=== PATIENT | female | born 1980 | race Caucasian/White ===

== ENCOUNTER 2016-07-17 11:26 | Emergency (ER) | payer SELFPAY ==
[2016-07-17 11:38] VITALS: BP 145/76
--- NOTE | 2016-07-17 11:53 | RAD ---
Indication injury, pain. AP oblique and lateral views of the right ankle were obtained. No bony abnormality is seen
[2016-07-17] MEDS ORDERED: TRAM-29 PO (12:15)
--- NOTE | 2016-07-17 12:15 | PHYS DOC ---
Past Medical History Past Medical History: Other Additional Past Medical Histor: PREECLAMPSIA Past Surgical History: , Other Additional Past Surgical Histo: CANCEROUS CELLS REMOVED Additional Information: 03/20 ppd Alcohol Use: Occasionally Drug Use: None Adult General Chief Complaint Chief Complaint: ANKLE PROBLEM HPI HPI Patient is a 35 year old female with history of appendicitis who presents today with moderate right ankle pain that began 5 days ago. Patient states she was walking down some steps when she rolled her ankle. Review of Systems Review of Systems Constitutional: Denies fever or chills [] Eyes: Denies change in visual acuity, redness, or eye pain [] HENT: Denies nasal congestion or sore throat [] Musculoskeletal: Right ankle pain Integument: Denies rash or skin lesions [] Neurologic: Denies headache, focal weakness or sensory changes [] Endocrine: Denies polyuria or polydipsia [] Allergies Allergies Allergies Coded Allergies Type Severity Reaction Last Updated Verified No Known Drug Allergies 12/30/15 No Physical Exam Physical Exam Constitutional: Well developed, well nourished, no acute distress, non-toxic appearance. [] HENT: Normocephalic, atraumatic, bilateral external ears normal, oropharynx moist, no oral exudates, nose normal. [] Eyes: PERRLA, EOMI, conjunctiva normal, no discharge. [] Neck: Normal range of motion, no tenderness, supple, no stridor. [] Cardiovascular:Heart rate regular rhythm, no murmur [] Lungs & Thorax: Bilateral breath sounds clear to auscultation [] Abdomen: Bowel sounds normal, soft, no tenderness, no masses, no pulsatile masses. [] Skin: Warm, dry, no erythema, no rash. [] Back: No tenderness, no CVA tenderness. [] Extremities: Right lateral ankle with mild soft tissue swelling. Tenderness on palpation of the right lateral ankle. Full range of motion to the right ankle. Patient able to flex and extend the right foot with no difficulty. +2 right radial pulse. Cap refill less than 2 seconds the right lower extremity. Sensation intact to the right ankle. Neurologic: Alert and oriented X 3, normal motor function, normal sensory function, no focal deficits noted. [] Psychologic: Affect normal, judgement normal, mood normal. [] Current Patient Data Vital Signs Vital Signs Date Time Temp Pulse Resp B/P Pulse Ox O2 Delivery O2 Flow Rate FiO2 5/1/17 11:38 98.2 71 18 98 Room Air 98.2 EKG EKG [] Radiology/Procedures Radiology/Procedures [] Course & Med Decision Making Course & Med Decision Making Pertinent Labs and Imaging studies reviewed. (See chart for details) Patient is in the ED right ankle pain after rolling it 5 days ago. Right ankle x -rays interpreted by radiologist are negative for any acute findings. Clay wrap applied to the right ankle by the appliance service technician. Neurovascular exam done by me is normal, cap refill less than 2 seconds. Ice elevation encouraged. Follow-up with orthopedic doctor in one week. Dragon Disclaimer Dragon Disclaimer This electronic medical record was generated, in whole or in part, using a voice recognition dictation system. Departure Departure Impression: Primary Impression: Right ankle sprain Disposition: HOME, SELF-CARE Condition: STABLE Referrals: NO PCP (PCP) ANG ZAMAN MD Follow-up with him in one week Patient Instructions: Ankle Sprain Additional Instructions: You were seen for right ankle sprain. Wear the air cast as tolerated, it will help with the swelling. Ice and elevate the extremity. Take the prescribed medicines as needed for pain. Follow-up with the provided orthopedic doctor in a week if pain continues. Scripts Tramadol Hcl (Ultram)50 Mg Tablet1 Tab PO Q6HRS #30 TAB Prov:CLIVE WOODRUFF APRN 07/17/16 Problem Qualifiers Primary Impression: Right ankle sprain Encounter type: initial encounter Involved ligament of ankle: unspecified ligament Qualified Code: S93.401A - Sprain of unspecified ligament of right ankle, initial encounter CLIVE WOODRUFF APRN July 17, 2016 12:15
== END 2016-07-17 12:34 | disposition home or self-care (01) ==
LOC: ER 11:26
DX: S93.401A Sprain of unspecified ligament of right ankle, initial encounter (principal); F17.200 Nicotine dependence, unspecified, uncomplicated; X50.9XXA Other and unspecified overexertion or strenuous movements or postures, initial encounter; Y93.89 Activity, other specified; Y99.8 Other external cause status; Y92.89 Other specified places as the place of occurrence of the external cause
CPT/HCPCS: 73610; 99284

== ENCOUNTER 2018-08-18 21:10 | Emergency (ER) | payer OTHER, SELFPAY ==
[~2018-08-18] VITALS: Ht 157.5 cm; Wt 79.4 kg
[~2018-08-18 21:10] MED LIST: TRAM-48 PO
[2018-08-18 21:31] VITALS: BP 154/70
--- NOTE | 2018-08-18 22:11 | PHYS DOC ---
Past Medical History Past Medical History: Other Additional Past Medical Histor: PREECLAMPSIA (LEODAN DORAN APRN) Past Surgical History: , Other Additional Past Surgical Histo: CANCEROUS CELLS REMOVED (LEODAN DORAN APRN) Alcohol Use: Occasionally Drug Use: None (LEODAN DORAN APRN) Adult General Chief Complaint Chief Complaint: FOOT INJURY PAIN [facility] HPI Patient is a 38 year old female who presents with L foot pain that has been ongoing since February. The patient states that is has been worse today. She states she was at the pool with her child and then was at work on her feet which has caused it to feel worse. The patient states that she rates her pain as 7/10 and sharp. Has tried insoles which is not working. (LEODAN DORAN APRN) Review of Systems Review of Systems Constitutional: Denies fever or chills [] Eyes: Denies change in visual acuity, redness, or eye pain [] HENT: Denies nasal congestion or sore throat [] Respiratory: Denies cough or shortness of breath [] Cardiovascular: No additional information not addressed in HPI [] GI: Denies abdominal pain, nausea, vomiting, bloody stools or diarrhea [] : Denies dysuria or hematuria [] Musculoskeletal: Denies back pain or joint pain with exception of L foot pain. Integument: Denies rash or skin lesions [] Neurologic: Denies headache, focal weakness or sensory changes [] Endocrine: Denies polyuria or polydipsia [] Complete systems were reviewed and found to be within normal limits, except as documented in this note. (LEODAN DORAN APRN) Current Medications Current Medications Current Medications Medications (Trade) Dose Ordered Sig/Juliana Start Time Stop Time Status Last Admin Dose Admin Ketorolac Tromethamine (Toradol 30mg Vial) 30 mg 1X ONCE 08/18/18 22:15 08/18/18 22:16 DC 08/18/18 23:25 30 MG (BRYANNA DIAMOND MD) Allergies Allergies Allergies Coded Allergies Type Severity Reaction Last Updated Verified No Known Drug Allergies 12/30/15 No (BRYANNA DIAMOND MD) Physical Exam Physical Exam Constitutional: Well developed, well nourished, no acute distress, non-toxic appearance. [] HENT: Normocephalic, atraumatic, bilateral external ears normal, oropharynx moist, no oral exudates, nose normal. [] Eyes: PERRLA, EOMI, conjunctiva normal, no discharge. [] Neck: Normal range of motion, no tenderness, supple, no stridor. [] Cardiovascular:Heart rate regular rhythm, no murmur [] Lungs & Thorax: Bilateral breath sounds clear to auscultation [] Abdomen: Bowel sounds normal, soft, no tenderness, no masses, no pulsatile masses. [] Skin: Warm, dry, no erythema, no rash. [] Back: No tenderness, no CVA tenderness. [] Extremities: No tenderness with exception of L foot, no cyanosis, no clubbing, ROM intact, no edema. [] Neurologic: Alert and oriented X 3, normal motor function, normal sensory function, no focal deficits noted. [] Psychologic: Affect normal, judgement normal, mood normal. [] (LEODAN DORAN APRN) Current Patient Data Vital Signs Vital Signs Date Time Temp Pulse Resp B/P (MAP) Pulse Ox O2 Delivery O2 Flow Rate FiO2 08/18/18 21:31 98.0 84 18 154/70 (98) 95 Room Air 98.0 (BRYANNA DIAMOND MD) EKG EKG [] (LEODAN DORAN APRN) Radiology/Procedures Radiology/Procedures Preliminary X-ray by Dr. Diamond No acute fracture but has heel spurs.[] (LEODAN DORAN APRN) Course & Med Decision Making Course & Med Decision Making Pertinent Labs and Imaging studies reviewed. (See chart for details) Will get x-ray of foot and refer to ortho. Patient is agreeable. (LEODAN DORAN APRN) Course & Med Decision Making Staff Physician Addendum: I was working in the ER during the course of this patient's visit. I was available for consultation as needed, but I was not directly involved in the care of this patient. (BRYANNA DIAMOND MD) Dragon Disclaimer Dragon Disclaimer This electronic medical record was generated, in whole or in part, using a voice recognition dictation system. (LEODAN DORAN APRN) Departure Departure Impression: Primary Impression: Foot pain, left Disposition: 01 HOME, SELF-CARE Condition: STABLE Referrals: UNKNOWN PCP NAME (PCP) SUZAN ESPARZA II, MD Patient Instructions: Heel Spur, Plantar Fasciitis (Heel Spur Syndrome) with [facility] Additional Instructions: Please follow up with ortho and your primary care doctor. Come back to ER as needed. LEODAN DORAN APRN Aug 18, 2018 22:10 BRYANNA DIAMOND MD Aug 20, 2018 05:00
[2018-08-18] MEDS ORDERED: KETOROLAC 30 MG/ML VIAL. IM ONE (22:15)
--- NOTE | 2018-08-19 15:49 | RAD ---
Examination: 3 views of the left foot HISTORY: History of left foot pain COMPARISON: None available FINDINGS: The alignment of the tarsal bones, tarsometatarsal joints, metatarsophalangeal, interphalangeal joints grossly appears unremarkable. Mild degenerative changes identified in the first MTP joint. There is no acute fracture or dislocation identified. Small calcaneal enthesophyte identified in the posterior inferior calcaneus. IMPRESSION: 1. No acute osseous findings. Electronically signed by: Johnathon Heath MD (08/19/2018 3:46 PM) [place] [id number]
== END 2018-08-18 23:30 | disposition home or self-care (01) ==
LOC: ER 21:10
DX: M79.672 Pain in left foot (principal)
CPT/HCPCS: 73630; 96372; 99284; J1885

== ENCOUNTER 2019-11-12 20:50 | Emergency (ER) | payer OTHER | END 2019-11-12 22:40 | disposition left against medical advice (07) | LOC: ER 20:50 | DX: M79.672 Pain in left foot (principal); Z53.21 Procedure and treatment not carried out due to patient leaving prior to being seen by health care provider ==